=== PATIENT | female | born 1990 | race Caucasian/White ===

== ENCOUNTER 2017-11-17 08:13 | Emergency (ER) | payer OTHER ==
[2017-11-17 08:16] VITALS: BP 115/71; PULSE 110; RESP 20; TEMP 98.3; O2SAT 97
--- NOTE | 2017-11-17 08:44 | PD ---
HPI Chief Complaint: Back/ Neck Pain or Injury Time Seen by Provider: 08:22 Travel History International Travel<30 days: No Contact w/Intl Traveler<30days: No Traveled to known affect area: No History of Present Illness HPI 26-year-old female with no significant history presents emergency department for evaluation of left lower back pain, acute onset 3 days ago when she lifted a flower pot at work. Patient states pain has been constant, intermittently throbbing. States it radiates to her left buttock at times. Denies any saddle paresthesia, loss of bowel or bladder, lower extremity weakness. She denies IV drug use. Patient has no other symptoms to report at this time. PFSH Past Medical History Medical History: Denies Significant Hx Musculoskeletal: Yes (SURGERY & PINS IN RIGHT ELBOW) Tetanus Vaccination: < 5 Years ?: Not : 2 Para: 2 Social History Alcohol Use: Yes Tobacco Use: Yes Substance Use: No Allergies-Medications (Allergen,Severity, Reaction): Coded Allergies: matthew (Verified Allergy, Unknown, 11/17/17) Reported Meds & Prescriptions Reported Meds & Active Scripts Active Robaxin (Methocarbamol) 500 Mg Tab 500 Mg PO QID PRN Medrol Dosepak (Methylprednisolone) 4 Mg Dspk 4 Mg PO DIRECTED Per Pharmacist direction Review of Systems Except as stated in HPI: all other systems reviewed are Neg Physical Exam Narrative GENERAL: Well-nourished, well-developed female patient, ambulatory with a slightly antalgic gait, but in no acute distress SKIN: Focused skin assessment warm/dry. HEAD: Normocephalic. EYES: No scleral icterus. No injection or drainage. NECK: Supple, trachea midline. No JVD or lymphadenopathy. CARDIOVASCULAR: Regular rate and rhythm without murmurs, gallops, or rubs. RESPIRATORY: Breath sounds equal bilaterally. No accessory muscle use. GASTROINTESTINAL: Abdomen soft, non-tender, nondistended. MUSCULOSKELETAL: No cyanosis, or edema. 5+ strength equal bilateral lower extremities. Sensation intact distal extremities. Negative clonus. Downward facing Babinski. BACK: No midline tenderness,. There is tenderness elicited palpation of the left sacroiliac joint. Without obvious deformity. No CVA tenderness. Data Data Last Documented VS Vital Signs Date Time Temp Pulse Resp B/P (MAP) Pulse Ox O2 Delivery O2 Flow Rate FiO2 11/17/17 08:16 98.3 110 20 115/71 (86) 97 Orders Orders Ketorolac Inj (Toradol Inj) (11/17/17 08:45) Orphenadrine Inj (Norflex Inj) (11/17/17 08:45) Corset Quick Draw (11/17/17 ) Ed Discharge Order (11/17/17 09:07) Brace Quick Draw Corset (11/17/17 ) MDM Medical Decision Making Medical Screen Exam Complete: Yes Emergency Medical Condition: Yes Medical Record Reviewed: Yes Differential Diagnosis Low back strain versus discogenic pain versus radiculopathy versus sciatica Narrative Course 26-year-old female presents emergency department for evaluation of low back pain after picking up a flower pot at work 3 days ago. Physical exam and history are consistent with a low back strain. Patient has no focal deficits or weakness. There is no spinal tenderness. Patient will be started on a short course of oral steroids provided additional pain control. She is encouraged to follow-up with primary care provider and return immediately with acute worsening symptoms. Diagnosis Primary Impression: Low back strain Qualified Codes: S39.012A - Strain of muscle, fascia and tendon of lower back , initial encounter Referrals: Primary Care Physician Patient Instructions: General Instructions, Low Back Strain (ED) Departure Forms: Tests/Procedures, Work Release Enter return to work date: November 19, 2017 Special Instructions: You may not return to work until cleared by Workmen's Comp. provider Additional Instructions: Ice and/or warm moist heat may help to alleviate symptoms Avoid activity that exacerbates pain Wear brace for support. Do not wear this at all times as it may weaken your core muscles, worsening her back pain Follow-up with a Workmen's Comp. approved provider Return immediately with acute worsening symptoms Med/Other Pt SpecificInfo: Prescription(s) given Scripts Methocarbamol (Robaxin) 500 Mg Tab 500 MG PO QID Y for MUSCLE SPASM, #20 TAB 0 Refills Prov: Rachelle Keyes 11/17/17 Methylprednisolone Dosepak (Medrol Dosepak) 4 Mg Dspk 4 MG PO DIRECTED, #1 DSPK 0 Refills Per Pharmacist direction Prov: Rachelle Keyes 11/17/17 Disposition: 01 DISCHARGE HOME Condition: Stable Rachelle Keyes November 17, 2017 08:43
[2017-11-17] MEDS ORDERED: KETOROLAC TROMETHAMINE 60 MG/2 ML (IM) VIAL IM ONE (08:45)
[2017-11-17] MEDS ORDERED: ORPHENADRINE INJ 60 MG/2 ML AMP IM ONE (08:45)
[2017-11-17] MEDS ORDERED: MEDR4PAK PO (09:10)
[2017-11-17] MEDS ORDERED: ROBA500T PO (09:10)
== END 2017-11-17 19:34 | disposition home or self-care (01) ==
LOC: NEPD 08:13
DX: S39.012A Strain of muscle, fascia and tendon of lower back, initial encounter (principal); X50.0XXA Overexertion from strenuous movement or load, initial encounter; Y93.89 Activity, other specified; Y92.9 Unspecified place or not applicable; Y99.0 Civilian activity done for income or pay; Z72.0 Tobacco use
CPT/HCPCS: 96372; 99283; J1885; J2360; L0627